=== PATIENT | male | born 1985 | race Caucasian/White ===

== ENCOUNTER 2020-03-26 15:10 | Inpatient (IN) | payer OTHER, SELFPAY ==
[2020-03-26] MEDS ORDERED: Fentanyl 100 MCG/2 ML VIAL ONE (16:54)
[2020-03-26] MEDS ORDERED: Promethazine HCl 25 MG/ML VIAL IM PRN (17:31)
[2020-03-26] MEDS ORDERED: Mag-Al 1200 mg/1200 mg/30 ML UDCUP PO PRN (17:31)
[2020-03-26] MEDS ORDERED: Acetaminophen/Codeine 30-300mg Tablet PO PRN (17:31)
[2020-03-26] MEDS ORDERED: Morphine 2 MG/ML SYRINGE SLOW IVP PRN (17:31)
[2020-03-26] MEDS ORDERED: Promethazine 25 MG TAB PO PRN (17:31)
[2020-03-26] MEDS ORDERED: Milk Of Magnesia 30 ML UDCUP PO PRN (17:31)
[2020-03-26] MEDS ORDERED: Ondansetron PF 4 MG/2 ML Vial IVP PRN (17:31)
[2020-03-26] MEDS ORDERED: traMADol HCl 50 MG TAB PO PRN (17:31)
[2020-03-26] MEDS ORDERED: CEFAZOLIN 2 GM in Premix Bag 1 BAG IVPB SCH (17:45)
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
--- NOTE | 2020-03-26 18:31 | MRI ---
MRI Cervical spine without contrast: HISTORY: Cervical spine fractures. Neck pain. COMPARISON: CT cervical spine obtained at [facility] on 03/25/2020 FINDINGS: There is motion present on multiple images. Images were repeated. The right aspect of the cervical sp ine is incompletely imaged on the provided sagittal images which does limit evaluation on this exam. The craniocervical junction is unremarkable. No significant cord signal abnormality. There is increased T2-weighted signal intensity related to edema seen posterior to the cervical spine with suggestion of mild edema in the region of the interspinous ligaments. The edema/fluid in the soft tissues extends from the level of the C2 vertebral body to level of C7 suggesting ligamentous in jury. There is fluid seen in the prevertebral space. As noted on CT scan of the cervical spine, there is anterior subluxation of C6 on C7. Fracture involv ing the left C6 facet is visualized but much better delineated on prior CT exam. There is significant motion on fluid sensitive sequences which limits evaluation of the osseous structures and for evaluation of additional areas of edema. C1-2:No significant stenosis. C2-3: There is no disc bulge or disc herniation. The central spinal canal and neural foramina are pat ent. C3-4: Mild disc osteophyte complex is present with uncinate process hypertrophy on the right. There i s mild effacement of the ventral subarachnoid space. Moderate bilateral neural foraminal narrowing is present. C4-5: No disc bulge or disc herniation. Central spinal canal and neural foramina are patent. C5-6: Disc osteophyte complex present which narrows the ventral subarachnoid space. Right neural fora men is patent. There is motion at this level, but there does appear to be severe left-sided neural foraminal narrowing. C6-7: Evidence of anterior subluxation as described above. There is disc bulge posteriorly. These fin dings result in narrowing of the central spinal canal with slight flattening the anterior aspect of the spinal cord, but no signal abnormalities are seen in the spinal cord. The right neural foramen is patent. Left neural foramen is not well delineated with suggestion of severe narrowing; however, there is motion at this level which limits adequate evaluation. C7-T1: There is no disc bulge or disc herniation. The central spinal canal and neural foramina are pa tent. IMPRESSION: 1. Edema/fluid posterior to the cervical spine extending from the level of the C2 vertebral body to t he level of C7. There is suggestion of mild edema in the region of the interspinous ligaments. Findings are suggestive of ligamentous injury. Definite ligamentous disruption is difficult to defini tely determine on this examination due to motion. 2. Fluid in the prevertebral space. 3. Anterior subluxation of C6 on C7. There is evidence of a fracture involving the inferior articulat ing facet of C6 on the right which is better visualized on the CT exam. 4. Limited exam due to motion. Right aspect of the cervical spine is not well evaluated on sagittal i maging as imaging was not obtained through the entire cervical spine. Multiple imaging sequences were repeated due to motion and patient's pain.
[2020-03-26 19:00] LABS: #Basophils 0.1 thou/uL (0.0-0.2); #Eosinphils 0.3 thou/uL (0.0-0.7); #Lymphocytes 1.8 thou/uL (1.20-3.40); #Monocytes 0.8 thou/uL (0.11-0.59); #Neutrophils 7.5 thou/uL (1.40-6.50); %Basophils 0.6 % (0.0-1.0); %Eosinophils 2.5 % (0.0-10.0); %Lymphocytes 17.1 % (21.0-51.0); %Monocytes 7.4 % (0.0-10.0); %Neutrophils 72.5 % (42.0-75.0); Hemoglobin 14.1 g/dL (14.0-18.0); Mean Corpuscular HGB CONC 32.9 g/dL (32.0-36.0); Mean Corpuscular Hemoglobin 31.7 pg (27.0-31.0); Mean Corpuscular Volume 96.3 fL (78.0-98.0); Mean Platelet Volume 6.6 fL (7.4-10.4); Platelet Count 328 thou/uL (130-400); Red Blood Cell (RBC) Count 4.46 mill/uL (4.70-6.10); White Blood Cell (WBC) Count 10.4 thou/uL (4.8-10.8)
[2020-03-26 19:10] LABS: PTT 28.5 sec (22.9-36.1)
[2020-03-26 19:11] LABS: INR-International Normal Ratio 0.9; Prothrombin Time 12.4 sec (12.0-14.7)
[2020-03-26 19:21] LABS: ALT (SGPT) 19 U/L (8-55); AST (SGOT) 17 U/L (5-34); Albumin 3.9 g/dL (3.5-5.0); Alkaline Phosphatase 77 U/L (40-110); Anion Gap 12 mmol/L (10-20); BUN (Urea Nitrogen) 8 mg/dL (8.9-20.6); Bilirubin, Total 0.3 mg/dL (0.2-1.2); Calc. Creatinine Clearance 0 mL/min (70-130); Calcium 8.9 mg/dL (7.8-10.44); Carbon Dioxide 26 mmol/L (22-29); Chloride 105 mmol/L (98-107); Estimated GFR-MDRD Greater than 90; Globulin 3.2 g/dL (2.4-3.5); Glucose 95 mg/dL (70-105); Potassium 4.1 mmol/L (3.5-5.1); Protein, Total 7.1 g/dL (6.0-8.3); Sodium 139 mmol/L (136-145)
[2020-03-26] MEDS: Sodium Chloride 0.9% 1,000 ML IV SCH (20:55)
[2020-03-26] MEDS: Acetaminophen/Codeine 30-300mg Tablet PO PRN (21:00)
[2020-03-26 22:52] VITALS: BMI 35.8
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
[2020-03-27] MEDS: Acetaminophen/Codeine 30-300mg Tablet PO PRN ×4 (01:50→20:48)
[2020-03-27] MEDS: tiZANidine HCl 4 MG TAB PO PRN ×3 (01:50→20:48)
[2020-03-27] MEDS ORDERED: Bacitracin Zinc Ointment 30 gm TUBE ONE (07:08)
[2020-03-27] MEDS ORDERED: Fentanyl 100 MCG/2 ML VIAL ONE ×5 (09:45→13:26)
[2020-03-27] MEDS ORDERED: Meperidine HCl/PF 25 MG/ML VIAL SLOW IVP PRN (11:50)
[2020-03-27] MEDS ORDERED: Promethazine HCl 25 MG/ML VIAL SLOW IVP PRN (11:50)
[2020-03-27] MEDS ORDERED: Promethazine HCl 25 MG/ML VIAL IM PRN (11:50)
[2020-03-27] MEDS ORDERED: Morphine Sulfate 2 MG/ML SYRINGE SLOW IVP PRN (11:50)
[2020-03-27] MEDS ORDERED: Ondansetron HCl/PF 4 MG/2 ML Vial IVP PRN (11:50)
[2020-03-27] MEDS ORDERED: HYDROmorphone 2 MG/ML VIAL SLOW IVP PRN (11:50)
[2020-03-27] MEDS ORDERED: PACU-Morphine 4MG/ML VIAL SLOW IVP PRN (11:50)
[2020-03-27] MEDS ORDERED: SUGAMMADEX SODIUM 200 MG/2 ML VIAL ONE (11:51)
[2020-03-27] MEDS ORDERED: PROPOFOL 200 MG/20 ML VIAL ONE (12:49)
[2020-03-27] MEDS ORDERED: Ondansetron PF 4 MG/2 ML Vial ONE (12:49)
[2020-03-27] MEDS ORDERED: Dexamethasone 20 MG/5 ML VIAL ONE (12:49)
[2020-03-27] MEDS ORDERED: Rocuronium Bromide 10 MG/ML (10ML VIAL) ONE (12:49)
[2020-03-27] MEDS ORDERED: Vecuronium 10 MG VIAL ONE (12:49)
[2020-03-27] MEDS ORDERED: Lidocaine 1% PF 5 ML VIAL ONE (12:49)
[2020-03-27] MEDS: Sodium Chloride 0.9% 1,000 ML IV SCH ×2 (14:38→20:38)
[2020-03-27] MEDS: traMADol HCl 50 MG TAB PO PRN (17:30)
[2020-03-27] MEDS: CEFAZOLIN 1 GM VIAL SLOW IVP SCH (17:31)
--- NOTE | 2020-03-27 17:49 | OP ---
DATE OF PROCEDURE: 03/27/2020 COUNTER INTELLIGENCE: Shavon John PA-C. PROCEDURES PERFORMED: Closed reduction at C6-C7, anterior cervical diskectomy at C6-C7, interbody arthrodesis, intervertebral biomechanical device, local morselized autograft, demineralized bone matrix, anterior titanium instrumentation at C6-C7, posterior approach at C6-C7 laminectomy, posterolateral arthrodesis, lateral mass screw instrumentation at C6-C7. demineralized bone matrix, local morselized autograft. DESCRIPTION OF PROCEDURE: The patient was brought to the operating room and intubated. After chemical paralytic was injected, Flavio head holders were placed and using fluoroscopy, a closed reduction was successfully applied, reducing the C6-C7 left-sided jumped facet. He was then position in anterior position, supine with the head in modest extension on a gel-filled donut. An incision was made in the right precervical area and dissected medial to the sternocleidomastoid muscle, identified the anterior cervical spine and confirmed the level by x-ray. We placed distraction across C6-C7, removed the intervertebral disk and placed an intervertebral biomechanical PEEK device, filled with demineralized bone matrix and local morselized autograft at C6-C7. Next, an anterior plate was brought into the field and secured to C6 and C7 using two 14 mm fixed screws at each level. This wound was then closed in anatomic layers over drain. The patient was then rolled in the prone position, still in a Flavio patented hogshead assembler. The head fixed in a neutral position. The midline incision was made exposing C6-C7. We found the expected left C6-C7 fracture. This was debrided and a complete decompression of the left C6-C7 region was achieved. We next placed lateral mass screws at right C6 and right C7 using lateral fluoroscopic guidance. Screws could not be placed at left C6 due to the fracture. The screws were connected by rods, secured by nuts, which were final tightened. The wound was extensively irrigated. MAC hemostasis was secured. A combination of demineralized bone matrix and local morselized autograft was laid over the left lamina and posterolateral surfaces of the purpose of arthrodesis. Vancomycin powder was applied and the wound was then closed in anatomic layers. Job ID: [id number]
[2020-03-28] MEDS: CEFAZOLIN 1 GM VIAL SLOW IVP SCH ×2 (00:10→08:21)
[2020-03-28 00:33] VITALS: TEMP 98
[2020-03-28] MEDS: Acetaminophen/Codeine 30-300mg Tablet PO PRN ×2 (01:10→05:52)
[2020-03-28] MEDS: tiZANidine HCl 4 MG TAB PO PRN (05:52)
[2020-03-28 07:57] VITALS: BP 112/68
[2020-03-28] MEDS: traMADol HCl 50 MG TAB PO PRN (08:21)
[2020-03-28] MEDS: Sodium Chloride 0.9% 1,000 ML IV SCH (08:21)
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
[2020-03-29 14:25] LABS: SARS-CoV-2 MS2 Positive; SARS-CoV-2 N Gene Negative; SARS-CoV-2 S Gene Negative; SARS-CoV-2 orf1ab Negative
--- NOTE | 2020-03-30 14:52 | EKG ---
Test Reason : Blood Pressure : / mmHG Vent. Rate : 068 BPM Atrial Rate : 068 BPM P-R Int : 132 ms QRS Dur : 090 ms QT Int : 406 ms P-R-T Axes : 016 050 025 degrees QTc Int : 431 ms Normal sinus rhythm Normal ECG Confirmed by YASMEEN LEHMAN, WILLY ([id number]), news editor SAMINA OWUSU ([id number]) on 03/30/2020 2:52:25 PM Referred By: Confirmed By:WILLY ARANA MD
== END 2020-03-28 10:34 | disposition home or self-care (01) | DRG 455 ==
LOC: ERS 15:10 → SJJU 19:38
PROVIDERS: ADMIT Surgery; ATTEND Surgery
PROC: 0RG10A0 Fusion of Cervical Vertebral Joint with Interbody Fusion Device, Anterior Approach, Anterior Column, Open Approach (ICD-10-PCS; principal; 2020-03-27)
PROC: 0RG1071 Fusion of Cervical Vertebral Joint with Autologous Tissue Substitute, Posterior Approach, Posterior Column, Open Approach (ICD-10-PCS; 2020-03-27)
PROC: 0RB30ZZ Excision of Cervical Vertebral Disc, Open Approach (ICD-10-PCS; 2020-03-27)
PROC: 4A11X4G Monitoring of Peripheral Nervous Electrical Activity, Intraoperative, External Approach (ICD-10-PCS; 2020-03-27)
DX: S12.590A Other displaced fracture of sixth cervical vertebra, initial encounter for closed fracture (principal); F12.10 Cannabis abuse, uncomplicated; S12.690A Other displaced fracture of seventh cervical vertebra, initial encounter for closed fracture; X58.XXXA Exposure to other specified factors, initial encounter
CPT/HCPCS: 36415; 71045; 72141; 76000; 80053; 85025; 85610; 85730; 87635; 93005; 96374; C1768; C1776; J0690; J1100; J2001; J2405; J2704; J3010; J3370; U0003